=== PATIENT | female | born 1970 | race Caucasian/White ===

== ENCOUNTER 2022-12-10 07:37 | Observation (INO) | payer OTHER, SELFPAY ==
--- NOTE | 2022-12-02 07:37 | HP.PCM_ITS ---
History and Physical History and Physical? Patient Name: Wanda Martinez : 1970 From:? SANDHYA AGRAWAL PA-C? DATE OF SURGERY:? 12/10/2022 SCHEDULED PROCEDURE:? Right total hip arthroplasty HISTORY OF PRESENT ILLNESS: Preoperative history and physical exam was performed on December 01, 2022.? This is a 52-year-old female who comes in today for ongoing pain for over 5 years and bilateral hips.? The right hip as been worse than the left.? Her pain is been aching, sharp and sore.? Pain is increased with going up and down stairs, sitting and walking.? She has difficulty with activities of daily living including housework, shopping and leisure activities.? She has difficulty putting on her socks and shoes.? Pain does awaken her at nighttime and is p ositional.? Her pain can reach as high as a 7/10.? She has difficulty getting in and out of the car from a seated position.? She does have start up pain.? She has tripped/stumbled and fallen secondary to the hip pain.? She denies past history of surgery on the right hip.? She has attempted physical therapy and home exercises without relief.? She has tried oral medications without relief.? She does continue to get lateral hip, buttock pain and groin pain in the right side.? She has medical history pertinent for supraventricular tachycardia as well as atrial fibrillation.? We have obtained clearance from the consumer relations specialist in which they have done a procedure for ablation of the atrial fibrillation.? She has now rate controlled on medication and has stopped all her anticoagulation.? She was on Eliquis until this procedure.? We also obtained surgical clearance from the primary care physician.? She denies any recent chest pain, shortness of breath, fevers chills or recent infections.? She denies past history of DVT or pulmonary embolism.? After failing conservative measures and discussing all treatment options with Dr. Dada Waggoner, the patient does wish to proceed with a right total hip arthroplasty. REVIEW OF SYSTEMS: Review Of Systems: Constitutional: Denies change in appetite, fever and weight change. Cardiovasular: Denies chest pain, heart murmur and irregular heartbeat. Respiratory: Denies cough, pneumonia, shortness of breath, tuberculosis and wheezing. Gastrointestinal: Denies constipation, diarrhea, heartburn, nausea, rectal itching, bloody stools and vomiting. Musculoskeletal: Reports gait disturbance, pain and trouble walking, but denies leg swelling and weakness. Skin: Denies Raynaud's, history of shingles and tattoo. Neurological: Denies ambulatory dysfunction, dizziness, numbness/tingling and tremor. Psychiatric: Denies anxiety, insomnia and stress. Hematologic/Lymphatic: Denies anemia, bleeding/bruising tendency and past transfusion. Reviewed, no changes. PAST MEDICAL HISTORY: Advance Care Plan: No Advance Directives Effective Date: 04/14/2022 Past Medical History: Medical Problems: SVT, Arthritis Covid- 19 - (06/2020) Covid Vaccinated A Fib - CORRECTED WITH SX Accidents: None Surgical Hx: Section - (1997) [facility] Section - (1998) [facility] Section - (2002) [facility] ablation - 08/2022 AND 09/2022- [facility] Anesthesia Complications: None Assistive Devices: Contacts Reviewed and updated. SOCIAL HISTORY: Social History: Marital: .Occupation: [employer] - [employer].Work Status: Currently Working.Hand Dominance: Right-handed. Personal Habits:? Tobacco Use: Patient has never smoked.Cigarette Use: Never Smoked Cigarettes.Smokeless Tobacco: Never Used Smokeless Tobacco.E-Cigarette Use: Never used.Alcohol: Occasionally.Drug Use: Denies Use.Enjoy Exercising: Exercises 1-3 x/month. Reviewed, no changes. VITALS: Ht: 63.5 Wt: 174lb Wt k.926 BMI: 30.3 BP: 124/82 Pulse: 87 Resp: 12 T: 97.1 T: 36.2C Pain Level: 8 O2SatR: 98 ALLERGIES: No Known Drug Allergy? MEDICATIONS: Dofetilide 250 mcg 1 PO bid, Vitamin D3 1.25 MG (65216 Ut) 1 PO bid PRE-OP EXAM:? General appearance:NORMAL? ? ? Other: Eyes: Conjunctivae and lids: NORMAL? Pupils: ERR Ears, Nose, Mouth, and Throat: NORMAL? Other: Inspection of lips, teeth and gums: NORMAL? ?Other: Neck: Examination of neck: no masses noted. Respiratory: Assessment of respiratory effort: NORMAL? ?Other: ?Auscultation of lungs: clear to auscultation no wheezes, rhonchi or rales. Cardiovascular:? Auscultation of heart: regular rate and rhythm, no murmurs, gallops or rubs. PHYSICAL EXAMINATION: Patient does walk with an antalgic gait.? She has increased pain with range of motion of the right hip reproducing groin pain.? She has flexion 80 with obligatory external rotation, internal rotation in neutral, pain with passive internal rotation and external rotation to 20.? 4/5 hip strength on the right and 5/5 on the left.? Sensation intact to light touch bilaterally. IMAGING STUDIES: Previous x-rays of the right hip reveal joint space narrowing with subchondral sclerosis, osteophyte formation consistent with severe stage IV bone on bone osteoarthritis.? Patient does have shallow acetabulum and large cam lesion consistent with previous dysplasia.? On x-rays of the left hip patient also has stage III moderate osteoarthritis with shallow acetabulum and large cam lesion.?? IMPRESSION: 1.? Severe right hip osteoarthritis 2.? Moderate left hip osteoarthritis 3.? Previous atrial fibrillation with ablation 4.? Supraventricular tachycardia PLAN: Dr. Dada Waggoner did discuss and review with the patient all treatment options including surgical versus nonsurgical options.? Patient does wish to proceed with the above-stated procedure.? Potential risks, benefits, and complications of the procedure were discussed in detail including but not limited to , infection, nerve and blood vessel damage, persistent pain, numbness, tingling, paresthesias, blood clot, pulmonary embolism, and requirement for possible further surgery.? The patient expressed full understanding and has no further questions for the doctor.? Patient does agree to proceed with the above-stated procedure and has signed the surgery consent form. POST-OP MEDICATION PLAN: DVT Prophylaxis: Plan will be to proceed with aspirin 81 mg twice daily for 4 weeks postoperatively.? Patient denies past history of DVT or pulmonary embolism. This dictation was created using voice recognition software. Phonetic and/or grammatical errors may exist. ___? I have re-examined the patient.? There are no clinical changes since date of exam. ___? See progress notes for changes. ___? Dictated on admission Date: ? ? ?Time: Signature:
[2022-12-10] VITALS (18 sets, daily range): BP systolic 91–127; BP diastolic 49–89; PULSE 66–92; RESP 16–18; TEMP 36.3–37; O2SAT 96–100; BMI 30.2
[2022-12-10] MEDS: Lactated Ringers 1,000 ML 15 ML IV (07:15)
--- NOTE | 2022-12-10 07:36 | OP.PCM_ITS ---
Report of Operation Date of Procedure: 12/10/22 Pre-Operative Diagnosis: Right hip dysplasia with secondary osteoarthritis Post-Operative Diagnosis: Right hip dysplasia with secondary osteoarthritis Surgery/Procedure Performed:: Right minimally invasive direct anterior total hip replacement Description of Surgical Findings:: Stable hip with equal leg length Surgeon: Dada Waggoner sustainability consultant: Amadou Marte Type of Anesthesia: Spinal Anesthesiologist: Jairo Molina Special Medications: 2 g Ancef, 1 g TXA at incision, 1 g TXA closure, 10 mg Decadron, joint cocktail (5 mg Duramorph, 30 mL of 0.5% Ropivicaine, 1000 units of epinephrine, 30 mg of Toradol) Specimen's removed: Bony cuts Estimated Blood Loss (mL): 300 Fluids Replaced: 1000 mL crystalloid Description of Procedure: Components used: 1. Insignia Zachery femoral stem size 3 high offset 2. Zachery trident 2 acetabular shell size 52 mm 3. Zachery X3 polyethylene E MDM liner 4. [place] Biolox delta 28mm, 0mm femoral head 5. Zachery cobalt-chromium MDM metal liner Brief history operative indications: 52 yo F who failed conservative measures for their hip osteoarthritis secondary to dysplasia. X-rays were consistent with osteoarthritis including joint space narrowing, osteophyte formation and subchondral cysts. Total hip replacement was discussed with the patient with risks and benefits including but not limited to blood loss, DVTs, PEs, neurovascular damage, dislocation, general risks of anesthesia including loss of life. Patient demonstrated an understanding medical clearance is obtained the patient was consented for surgery. Procedure: On the date of procedure the patient's right hip was marked in the preoperative area. Patient was then taken back to the operating room where anesthesia assumed control of the C-spine and airway and administered anesthetic. Patient was transferred to the operating table and placed in the supine position. The hips were placed at the break of the bed and a sacral bump was placed. The right lower extremity was then prepped out in a sterile fashion using chlorhexidine while the surgeon scrubbed. The PA was vital in the positioning of the patient. Upon reentering the room the right lower extremity was draped in the standard orthopedic fashion and the incision was marked. A timeout was called and everyone agreed upon the side, the site, the procedure be performed, antibody given, and patient's identity. At this time incision was made through skin, subcutaneous tissue, and fat down to fascia. The fascia was then incised and the TFL was retracted laterally. A retractor was placed on the lateral border of the femoral neck. Attention was directed to the inferior portion of the approach and all crossing vessels were identified and appropriately coagulated. A retractor was then placed on the medial portion of the femoral neck. The anterior capsule was then cleared of all soft tissue and then H shaped capsulotomy was made. The retractors were then placed inside the capsule. The femoral neck was identified and a cleanup cut was made. At this time a power corkscrew was used to remove the femoral head. Attention was then turned toward the acetabulum where the soft tissues were appropriately retracted and the acetabulum was sequentially reamed to 52 mm. A 52 mm cup was then selected and impacted into place. Acetabular liner was impacted into place and locking mechanism was verified. The position of the acetabular cup was then verified under live fluoroscopy. Attention was then turned to the femur. Soft tissue releases on the medial and lateral femoral neck were appropriately done, the leg was externally rotated and lateralized. A Corona retractor was placed medially and proximally to the greater trochanter this allowed appropriate visualization and exposure of the femoral canal. Rongeour was then used to remove excess lateral bone. A canal finder and entry broach were used to open the proximal canal. Once we verified we were down the femoral canal we subsequently broached up to a size 3 femur. The appropriate neck was placed in the previously selected head was trialed with a 0 mm neck. Traction was pulled and the hip was reduced with internal rotation. Once it was appropriately reduced and stability was checked. There was minimal shuck, equal leg lengths and appropriate stability with hyperextension and external rotation as well as with 90? flexion and internal rotation. Fluoroscopy was then also used to verify the position of the components and leg lengths using the contralateral side for comparison. The trial components were then dislocated the proximal femur was again exposed and the components were removed from the wound. The final components were verified and opened. The wound was copiously irrigated out with normal saline. The acetabulum was checked for any residual debris. The final components were placed and impacted. Traction and internal rotation were again used to reduce the hip. After adequate reduction the hip remained stable with appropriate leg lengths. The final components were once again checked with live fluoroscopy and were found to be satisfactory. The wound was then copiously irrigated with normal saline once more, and hemostasis was obtained. Closure was then done using #1 Vicryl runner to close the fascia. A 2-0 vicryl interuppted sutures were used to close the subcutaneous skin. A 3-0 Monocryl and Steri-Strips were used for final skin closure. A Silverlon dressing was placed. Patient was awakened by anesthesia and transferred to the [place] graft[place]. Patient was then transferred to the PACU for recovery. During the course of the procedure the physician human relations teacher (PE) played a vital role. Their intimate knowledge of my steps in the procedure aided in safe and expedient completion of the procedure. The PE played a vital rolls in positioning particularly in obtaining the appropriate positioning of the sacral bump. The PE was also vital in the retraction of soft tissues during the exposure and especially the femoral work as this is a vital part of the procedure to prevent complications and fractures. The PE was also vital and protecting soft tissues during times of bony cuts and reaming. He also played a vital role in closure with my direct supervision. The PE was also important during reduction and dislocation of the joint and trials intraoperatively. Postoperative plan: Patient will get 24 hours postop antibiotics. Patient will get in-house physical therapy and will be weight-bear as tolerated. Patient will follow up in office in 2 weeks for a wound check and x-rays. Aspirin 81 mg twice daily. Complications No intraoperative complications Admit VTE Documentation VTE Present on Admission: No VTE Mechan Device Prophylaxis: SCD's and Thigh High REED Hose VTE Pharm Prophylaxis ordered?: Yes
[2022-12-10] MEDS: Lactated Ringers 1,000 ML 999 ML IV ×2 (07:39→10:31)
[2022-12-10 07:40] LABS: Internal QC Validated? YES +Cl - CLEAR BKGD; Pregnancy, Urine Negative Negative
[2022-12-10] MEDS: Magnesium 2 GM for ERAS IV (07:41)
[2022-12-10] MEDS: Gabapentin 600 MG Tablet PO (07:42)
[2022-12-10] MEDS: Celecoxib 200 MG Capsule 400 MG PO (07:42)
[2022-12-10] MEDS: Acetaminophen 500 MG Tablet 1000 MG PO ×3 (07:42→20:36)
[2022-12-10 07:45] LABS: Bedside Glucose 96 mg/dL (74-106)
[2022-12-10] MEDS: Cefazolin 2 GM in 0.9% Normal Saline 100 ML IV (08:49)
[2022-12-10] MEDS: TXA 1000mg in NS100 100ml (IVPB at Incision) 660 MG IV (08:49)
--- NOTE | 2022-12-10 09:15 | HIP_PTH ---
PATIENT: NAHOMY SANTOS LOC: MS3 U#:[id number] AGE/SX: 52/F ROOM: [facility] RE12/10/[address]: Dr. Dada Waggoner MD : 1970 BED: 1 DIS: 12/11/2022 SPEC #: [id number] RECD: 12/10/22 13:06 STATUS: MARLENE REMaribeth #: [id number] WAGNER: 12/10/22 09:[address]: Dada Waggoner DEPT: SURGICAL PATHOLOGY RECD BY: Huma Mendiola ENTERED: 12/10/22 13:08 SP TYPE: TOTAL HIP OTHR DR: Shyanne Floyd, NURIA Tissues: Hip, NOS Procedures: Decalcification bone/plaque Surgery Specimen Level IV HEADER OPERATION: ERAS, total hip anterior approach PRE-OP DIAGNOSIS: Subchondral sclerosis, osteoarthritis TISSUE SUBMITTED: Right hip bone and tissue contents MICROSCOPIC DIAGNOSIS Right hip bone and tissue, total hip replacement/resection: Femoral head with degenerative osteoarthritic changes. Fragments of fibroadipose tissue, fibroconnective tissue and reactive synovial tissue. DIONNE:hafsa 12/12/2022 MICROSCOPIC DESCRIPTION Slides are reviewed. GROSS DESCRIPTION Received is one container labeled with the patient's name and designated right hip bone and tissue contents. The specimen consists of a meyers femoral head measuring 4.5 x 5.0 x 3.5 cm. The articular surface displays prominent osteophyte formation, eburnation and bone erosion. Also present in the container is a detached piece of bone consistent with portion of femoral neck measuring 3.5 x 2.5 x 1.0 cm. Also present in the specimen container are multiple irregular fragments of bone reamings and pink-yellow soft tissue measuring in aggregate 7.0 x 8.0 x 2.5 cm. [employer] sections are submitted in two cassettes as follows: 1 - soft tissue, 2 - bone after decalcification. / DIONNE:hafsa 12/10/2022 TC:5 CPT: 28289, 94025
[2022-12-10 09:43] LABS: Prothrombin Time (Protime)PT. 13.1 SECONDS (11.7-14.9)
[2022-12-10 09:52] LABS: Partial Thromboplast Time 30.7 Seconds (24.1-36.2)
--- NOTE | 2022-12-10 10:04 | RAD_ITS ---
STUDY: X-RAY - PELVIS AND RIGHT HIP REASON FOR EXAM: Female, 52 years old. Right anterior hip replacement. TECHNIQUE: 3 views of the pelvis and hip. COMPARISON: None. FINDINGS: Intraoperative imaging provided for right total hip replacement. There is good alignment. RAD/Hip 1 view with Pelvis IMPRESSION: Intraoperative images provided for right total hip replacement. Electronically Signed: Triston Paniagua MD at 12:31 EDT ,
[2022-12-10] MEDS: TXA 1000mg in NS100 100ml (IVPB at Closure) 660 MG IV (10:19)
[2022-12-10] MEDS: JPS (Morphine 10mg/ml) OPERA.SITE (10:33)
--- NOTE | 2022-12-10 11:15 | RAD_ITS ---
STUDY: X-RAY - PELVIS AND RIGHT HIP REASON FOR EXAM: Female, 52 years old. Post Op -- AP both hips on single bobby/lateral of op hip PACU TECHNIQUE: 2 views of the pelvis and hip. COMPARISON: None. FINDINGS: The patient status post right total hip replacement. There is good alignment. Postoperative soft tissue changes. RAD/Hip Min 2 Views (Portable) IMPRESSION: Status post right total hip replacement. There is good alignment. Postoperative soft tissue changes. Electronically Signed: Triston Paniagua MD at 11:59 EDT ,
[2022-12-10] MEDS: Lactated Ringers 1,000 ML 125 ML IV (12:15)
[2022-12-10] MEDS: Ondansetron 4 MG/2 ML Vial IV (15:49)
[2022-12-10] MEDS: Cefazolin 1 GM/50 ML BAG IV (16:58)
[2022-12-10] MEDS: Ensure Surgery 237 ML LIQUID PO (16:59)
[2022-12-10] MEDS: Cholecalciferol (VIT D3) 25 MCG TABLET (1,000 UNITS) PO (16:59)
[2022-12-10] MEDS: Aspirin 81 MG TAB.CHEW PO (16:59)
--- NOTE | 2022-12-10 17:39 | PCM.PN.HOSP ---
Subjective Subjective 52-year-old female presents to the hospital for right anterior total hip replacement secondary to osteoarthritis well after the procedure, pain is minimal and she is not requiring any oxygen Objective Data Objective Data Vital Signs: Vital Signs Temp Pulse Resp BP Pulse Ox O2 Del Method O2 Flow Rate 97.6 F L 66 16 94/60 100 Room Air 4 12/10/22 16:55 12/10/22 16:55 12/10/22 16:55 12/10/22 16:55 12/10/22 16:55 12/10/22 16:55 12/10/22 12:42 Oxygen Flow Rate (L/min) 4 Oxygen Delivery Method Room Air Weight: 176 lb Body Mass Index (BMI) 30.2 Intake & Output: Intake and Output for Last 24 Hours 12/09/22 12/10/22 12/11/22 03:59 03:59 03:59 Intake Total 3734 / 3734 Balance 3734 / 3734 Lab / Micro Data Labs: Laboratory Results - last 24 hr 12/10/22 07:00: Urine Test Negative 12/10/22 07:18: POC Glucose 96 12/10/22 07:20: PT 13.1, INR 1.0, APTT 30.7 Radiography Diagnostic Testing: Radiology Impression Hip/Pelvis X-Ray 12/10/22 10:04 IMPRESSION: Intraoperative images provided for right total hip replacement. Electronically Signed: Triston Paniagua MD at 12:31 EDT , Hip X-Ray 12/10/22 11:15 IMPRESSION: Status post right total hip replacement. There is good alignment. Postoperative soft tissue changes. Electronically Signed: Triston Paniagua MD at 11:59 EDT , Physical Exam Narrative General: Alert, Oriented x3, Cooperative, No apparent distress HEENT: Atraumatic, PERRLA, EOMI, Normocephalic Oral: Moist Mucosa Neck: Supple, No JVD Lungs: Clear to auscultation, Normal air movement, No rhonchi, No wheeze, No rales Cardiovascular: Regular rate, Regular Rhythm, Normal S1, Normal S2, No murmurs Abdomen: Soft, Non Tender, Non-Distended, No Hepato-splenomegaly Extremities: No edema, Capillary Refill Less than 3 Seconds Skin: No rashes, No breakdown, dressing intact Musculoskeletal: No Tenderness to Palpation of Joints or Extremities Neurological: Cranial nerves II-XII grossly intact, Motor Exam 5/5 strength throughout, Sensory exam intact to light touch and pain Psych/Mental Status: Normal Affect, Appropriate Assessment & Plan Assessment/Plan (1) S/P total hip arthroplasty: PLAN: Plan 1. Status post total hip arthroplasty due to osteoarthritis ? Pain management per primary ? PT/OT ? Anticipate discharge in the morning ? Vital signs are stable 2. A-fib ? Continue with Tikosyn DVT: Aspirin twice daily Charges/Coding Visit Charges Office Visits / Consults: [id number] OV L3 New
[2022-12-10] MEDS: Dofetilide 250 MCG Capsule PO (20:36)
[2022-12-10] MEDS: Senna/Docusate Sodium 1 Tablet 2 TABLET PO (20:36)
[2022-12-11 02:15] VITALS: BP 100/60; PULSE 79; RESP 16; TEMP 36.8; O2SAT 99
[2022-12-11] MEDS: Ketorolac 15 MG/ML Vial IV (02:43)
[2022-12-11] MEDS: Cefazolin 1 GM/50 ML BAG IV (02:43)
[2022-12-11] MEDS: Acetaminophen 500 MG Tablet 1000 MG PO ×2 (06:10→14:05)
[2022-12-11 06:44] LABS: Hematocrit 32.8 % (37-47); Hemoglobin 11.1 g/dL (12.0-15.0); Mean Corp Hgb Conc 33.8 g/dL (32-36); Mean Corpuscular Hgb 31.2 pg (27.0-32.0); Mean Corpuscular Volume 92.1 fL (81-99); Mean Platelet Vol. 9.1 fl (6.2-12.0); Platelet Count 183 K/mm3 (150-450); RBC Distribution Width CV 12.8 % (11.6-14.6); RBC Distribution Width SD 43.3 fl (35.1-43.9); Red Blood Count 3.56 M/mm3 (4.2-5.4); White Blood Count 7.8 K/mm3 (4.4-11.0)
[2022-12-11 07:11] LABS: Anion Gap 3 (5-15); BUN 10 mg/dL (7-18); BUN/Creat Ratio 12.6 RATIO (10-20); Calcium,Total 8.1 mg/dL (8.5-10.1); Chloride 111 mmol/L (98-107); Creatinine, Serum 0.79 mg/dL (0.55-1.02); EST Glomerular Filtration Rate 80 mL/min (>60); Est Glom Filt Rate - Afr Amer 97 mL/min (>60); Glucose 124 mg/dL (74-106); Potassium 4.3 mmol/L (3.5-5.1); Sodium Level 141 mmol/L (136-145)
[2022-12-11 08:15] VITALS: BP 106/62; PULSE 83; RESP 16; TEMP 37; O2SAT 100
[2022-12-11] MEDS: Famotidine 20 MG Tablet PO (08:42)
[2022-12-11] MEDS: Cholecalciferol (VIT D3) 25 MCG TABLET (1,000 UNITS) PO (08:42)
[2022-12-11] MEDS: Aspirin 81 MG TAB.CHEW PO (08:42)
[2022-12-11] MEDS: Dofetilide 250 MCG Capsule PO (08:42)
[2022-12-11] MEDS: Senna/Docusate Sodium 1 Tablet 2 TABLET PO (08:44)
--- NOTE | 2022-12-11 09:12 | PN.ORTHO_ITS ---
Subjective Subjective The patient was sitting in bed upon examination. Patient denies any chest pain, shortness of breath, dizziness, lightheadedness, nausea or vomiting, or calf pain. Pain is controlled on medications. No adverse overnight events. Patient states she does have soreness in the thigh when getting up and moving but sandra pérez has no significant pain at rest. Patient overall appears to be doing well this morning. She is about to begin physical therapy. Plan is for patient to be discharged home when ready. Objective Data Objective Data Vital Signs: Vital Signs Temp Pulse Resp BP Pulse Ox O2 Del Method O2 Flow Rate 98.6 F 83 16 106/62 100 Room Air 4 12/11/22 08:15 12/11/22 08:15 12/11/22 08:15 12/11/22 08:15 12/11/22 08:15 12/11/22 08:15 12/10/22 12:42 Oxygen Flow Rate (L/min) 4 Oxygen Delivery Method Room Air Weight: 79.832 kg Body Mass Index (BMI) 30.2 Intake & Output: Intake and Output for Last 24 Hours 12/09/22 12/10/22 12/11/22 23:59 23:59 23:59 Intake Total 4734 / 4734 50 / 50 Balance 4734 / 4734 50 / 50 Lab / Micro Data Result Diagrams: 12/11/22 06:30 12/11/22 06:30 Labs: Laboratory Results - last 24 hr 12/10/22 07:20: PT 13.1, INR 1.0, APTT 30.7 12/11/22 06:30: WBC 7.8, RBC 3.56 L, Hgb 11.1 L, Hct 32.8 L, MCV 92.1, MCH 31.2, MCHC 33.8, RDW Std Deviation 43.3, RDW Coeff of Nichole 12.8, Plt Count 183, MPV 9.1 12/11/22 06:30: Sodium 141, Potassium 4.3, Chloride 111 H, Carbon Dioxide 27.0, Anion Gap 3 L, BUN 10, Creatinine 0.79, Estim Creat Clear Calc 70.30, Est GFR (MDRD) Af Amer 97, Est GFR (MDRD) Non-Af 80, BUN/Creatinine Ratio 12.6, Glucose 124 H, Calcium 8.1 L Radiography Diagnostic Testing: Radiology Impression Hip/Pelvis X-Ray 12/10/22 10:04 IMPRESSION: Intraoperative images provided for right total hip replacement. Electronically Signed: Triston Paniagua MD at 12:31 EDT , Hip X-Ray 12/10/22 11:15 IMPRESSION: Status post right total hip replacement. There is good alignment. Postoperative soft tissue changes. Electronically Signed: Triston Paniagua MD at 11:59 EDT , Physical Exam Narrative Vital signs stable and afebrile. Right hip is soft and supple SCDs and REED hose are in place bilaterally Patient is able to plantarflex and dorsiflex actively. Sensation is intact to light touch to saphenous, sural, superficial and deep peroneal, and tibial distribution. Dressing is clean dry and intact. Negative Homans bilaterally, negative signs and symptoms of DVT. Const alert, oriented x3 and no apparent distress Assessment & Plan Assessment/Plan (1) S/P total right hip arthroplasty: PLAN: 1. S/P direct anterior right total hip arthroplasty POD #1 2. Continue Pain Medications: Tylenol, meloxicam, oxycodone. Do not take any other nonsteroidal anti-inflammatories while using meloxicam/Mobic. 3. DVT Prophylaxis: Take 81 mg aspirin twice daily for 4 weeks postoperatively for DVT prophylaxis. Patient denies past history of DVT or pulmonary embolism 4. PT/OT: Weightbearing as tolerated with walker. Appreciate recommendations from physical therapy with regards to her at home walker. 5. H & H: 11.1/32.8, asymptomatic. Postoperative anemia secondary to acute blood loss from surgery without any intra operative complications. 6. Continue postoperative medical management per medicine 7. Encouraged Incentive Spirometry 8. Disposition: Plan will be for probable discharge home this afternoon as long as patient tolerates therapy, the pain is well controlled, and medically stable. Patient would like her prescriptions E scribed to [facility]. She has outpatient physical therapy to begin on Thursday. She will follow-up per postop instructions. Patient states that she did not want much of the narcotic upon discharge. I did explain to her I will give her a small prescription so that if she does require additional medication over the weekend she will have. If she does need any refills she will contact our office. She will contact her office upon discharge with any concerns or questions. I have reviewed the [place] Automated Rx Reporting System (OARRS) report for this patient for refill pattern and other prescriber involvement as part of the appropriate surveillance for the provision of acute and chronic controlled medications. The report was requested and reviewed on the date of this entry and was considered in the prescribing process. This dictation was created using voice recognition software. Phonetic and/or grammatical errors may exist.
--- NOTE | 2022-12-11 09:16 | DCINST_ITS ---
Discharge Instructions Diet Discharge Diet: No restrictions Activity Discharge Activity: May Not Drive (No driving for 6 weeks postoperatively. Must also be off all narcotics and able to walk 100 feet without the use of cane or walker.) May shower in (days): 1 (only if incision is dry and without drainage. Do NOT soak/submerge in tub/pool/granado/stream/hot tub.)) Ice area for (Minutes): 20 (Every 1-2 hours while [address] barrier between ice and skin.) Weight Bearing Status: Weight bearing as tolerated (With walker) Keep extremity elevated above heart level: Operative Extremity Additional Activity Instructions:: Follow [facility] Post-op Instructions. Once postoperative dressing has been removed only use gentle soap and water over the incision. Do not use any ointments, Neosporin, salves, alcohol pads over the incision for 6 weeks postoperatively. Do not submerge underwater for 6 weeks postoperatively. Wear elastic stockings for 2 weeks. Do NOT use alcohol with narcotic pain medication. Do NOT make important decisions while taking narcotic medication. If you have problems with taking your medication (rash, itching, nausea, etc.) call the office at once. Dressing / Incision Call your doctor if your incision/area has: Continuous Slow Oozing, Sudden Increased Bleeding, Increased Pain/ Swelling, Increased Redness and Foul Smelling Discharge Call your doctor if you observe: Fever of 101 or Higher, Shortness of breath, Chest pain, Calf discomfort and Uncontrolled pain Remove Dressing in: 4 days (Okay to remove dressing on December 15, 2022) Additional Dressing/Incision Instructions:: Follow [facility] Post-op Instructions. Once postoperative dressing has been removed, only use gentle soap and water over the incision. Do not use any ointments, Neosporin, salves, alcohol pads over the incision for 6 weeks postoperatively. Do not submerge underwater for 6 weeks postoperatively. Continue with REED hose/elastic stockings for 2 weeks postoperatively. May remove at nighttime but needs to be placed back on the leg during the day. Do NOT use alcohol with narcotic pain medication. Do NOT make important decisions while taking narcotic medication. If you have problems with taking your medication (rash, itching, nausea, etc.) call the office at once. Follow Up Care Test Results: Test results from this visit will be discussed in further detail at your follow- up appointment, if applicable. Discharge Plan Admission Admit Date/Time: 12/10/22 14:47 Attending Provider: Dada Waggoner Primary Care Provider: Shyanne Floyd NP Consulting Providers: Claudia Ni Discharge Orders/Prescriptions Prescriptions: New acetaminophen 500 mg Tablet 1,000 mg PO TID Qty: 90 0RF Rx Instructions: Do not take more than 3000 mg Tylenol in a 24-hour period. aspirin 81 mg tablet,delayed release (DR/EC) 81 mg PO BIDCM 30 Days Qty: 60 0RF Rx Instructions: Take 81 mg aspirin twice daily for 4 weeks postoperatively for DVT prophylaxis. meloxicam 7.5 mg Tablet 7.5 mg PO BID 30 Days Qty: 60 0RF Rx Instructions: Do not take any other nonsteroidal anti-inflammatories while using meloxicam/Mobic. famotidine 20 mg Tablet 20 mg PO DAILY 30 Days Qty: 30 0RF oxycodone 5 mg Tablet 5 - 10 mg PO Q4H PRN PRN (Reason: prn pain) 3 Days Qty: 12 0RF sennosides-docusate sodium [Stool Softener-Stimulant Laxat] 8.6-50 mg Tablet 2 tab PO BID 3 Days Qty: 12 0RF Rx Instructions: Take until first bowel movement, then as needed Continued dofetilide 250 mcg capsule 250 mcg PO BID Label Comments: take 1 capsule by mouth every 12 hours cholecalciferol (vitamin D3) [Vitamin D3] 25 mcg (1,000 unit) Tablet,Chewable 25 mcg PO BID Referrals / Follow Up: Physical,Therapy [Other] - 12/15/22 10:30 am Shyanne Floyd NP, GAS METER READER-C [Primary Care Provider] - Amadou Marte PA-C [Med Staff - [facility]] - 12/25/22 2:45 pm Disposition Disposition (needs filled in before D/C Order can be placed): Home, Self Care
--- NOTE | 2022-12-11 10:08 | CASEMGMT ---
Addendum entered by Iza Curiel 12/11/22 10:24: [facility]. Original Note: AIDAN JIMENEZ Assessment: Face to Face with pt for initial transition planning/care coordination assessment. RN CM introduced self and role at [facility], pt voices understanding and consents to assessment. Pt is A/O x4 and answers all questions appropriately at this time. Pt sitting up in chair in no distress. came in room mid assessment. Care providers, pharmacy, and demographics verified/updated. Admitting Dx: R total hip anterior approach PCP:Shyanne Floyd VACUUM DRIER OPERATOR Specialists:Edilson, keturah; Balaji and Tavo, cardio Preferred [facility]acy: [facility] [place] Insurance: Yo Prescription Benefit: yes LNOK: Pop Michelle, Living Arrangements: Pt lives with and two children in a two story home with 2 steps to enter. Pt reports she was I in ADL's prior to surgery. Pt and dtr who is a ROUGH PATCHER and vice president of nursing will assist her post surgery. Pt denies concerns at home. Transportation: Pt drives self and denies concerns with transportation. Pt will transport pt post surgery. DME/HHC/SNF: Pt did not use AD prior to surgery. Pt has a 4 wheel rollator. Pt denies hx of HHC and SNF stays. Pt states no concerns with going home at time of dc. She is in need of a FWW. Provided pt with a verbal local in network list of DME companies, pt chose [employer]. Pt has outpt therapy set up on Thursday at [facility]. Pt states no further concerns/needs. CM to follow. Advised pt to ask CM if any further question/concerns/needs arise, voices understanding. Pt Goal: Home with outpt therapy set up Plan: Home with outpt therapy set up
[2022-12-11 11:19] VITALS: BP 106/66; PULSE 86; RESP 16; TEMP 37.2; O2SAT 100
--- NOTE | 2022-12-11 12:17 | PCM.PN.HOSP ---
Reason for Visit Reason for Visit: Diagnoses Encounter for other preprocedural examination (12/10/22) Presence of right artificial hip joint (12/10/22) Presence of unspecified artificial hip joint (12/10/22) Subjective Subjective Feeling well, no complaints Objective Data Objective Data Vital Signs: Vital Signs Temp Pulse Resp BP Pulse Ox O2 Del Method O2 Flow Rate 98.9 F 86 16 106/66 100 Room Air 4 12/11/22 11:19 12/11/22 11:19 12/11/22 11:19 12/11/22 11:19 12/11/22 11:19 12/11/22 11:19 12/10/22 12:42 Oxygen Flow Rate (L/min) 4 Oxygen Delivery Method Room Air Weight: 79.832 kg Body Mass Index (BMI) 30.2 Intake & Output: Intake and Output for Last 24 Hours 12/09/22 12/10/22 12/11/22 23:59 23:59 23:59 Intake Total 4734 / 4734 450 / 450 Balance 4734 / 4734 450 / 450 Lab / Micro Data Result Diagrams: 12/11/22 06:30 12/11/22 06:30 Labs: Laboratory Results - last 24 hr 12/11/22 06:30: WBC 7.8, RBC 3.56 L, Hgb 11.1 L, Hct 32.8 L, MCV 92.1, MCH 31.2, MCHC 33.8, RDW Std Deviation 43.3, RDW Coeff of Nichole 12.8, Plt Count 183, MPV 9.1 12/11/22 06:30: Sodium 141, Potassium 4.3, Chloride 111 H, Carbon Dioxide 27.0, Anion Gap 3 L, BUN 10, Creatinine 0.79, Estim Creat Clear Calc 70.30, Est GFR (MDRD) Af Amer 97, Est GFR (MDRD) Non-Af 80, BUN/Creatinine Ratio 12.6, Glucose 124 H, Calcium 8.1 L Radiography Diagnostic Testing: Radiology Impression Hip/Pelvis X-Ray 12/10/22 10:04 IMPRESSION: Intraoperative images provided for right total hip replacement. Electronically Signed: Triston Paniagua MD at 12:31 EDT , Physical Exam Narrative General: Alert, oriented, no apparent distress HEENT: Atraumatic, normocephalic Eyes: extraocular movements grossly intact Neck: Supple Respiratory: normal respiratory effort Cardiovascular: no edema appreciated GI: nondistended Extremities: Moving all extremities Neuro: No overt focal neurological deficits Psych: Cooperative Assessment & Plan Assessment/Plan (1) S/P total hip arthroplasty: PLAN: Plan 1. Status post total hip arthroplasty due to osteoarthritis ? Pain management per primary ? PT/OT ? Anticipate discharge in the morning ? Vital signs are stable -12/11: Doing well, no acute complaints. 2. A-fib ? Continue with Tikosyn DVT: Aspirin twice daily Charges/Coding Visit Charges Inpatient E&M: 06908 Subs Hosp L1
== END 2022-12-11 14:07 | disposition home or self-care (01) ==
LOC: MS3 12-11 07:32 → SDC 12-11 09:34 → MS3 12-11 09:35
PROVIDERS: Anesthesiology; Admitting Provider Specialist; PCP Nurse Practitioner Primary Care; Referring Provider Specialist; Visit Provider Specialist
PROC: (CPT 27284; principal; 2022-12-10 08:50)
DX: M16.0 Bilateral primary osteoarthritis of hip (principal); I47.1 Supraventricular tachycardia; I48.91 Unspecified atrial fibrillation; Q65.89 Other specified congenital deformities of hip; Z79.899 Other long term (current) drug therapy; Z79.82 Long term (current) use of aspirin
CPT/HCPCS: 27130; 01214; 36415; 73501; 73502; 76000; 80048; 81025; 82962; 85027; 85610; 85730; 88305; 88311; 94668; 96365; 96366; 96375; 97110; 97116; 97162; 97166; 97530; 97535; 99221; 99252; C1776; J7120; G0378; G0463; J2405